=== PATIENT | male | born 1980 | race Caucasian/White ===

== ENCOUNTER 2016-11-29 09:47 | Day surgery (SDC) | payer OTHER ==
[2016-11-28 13:22] VITALS: BMI 25.6
[~2016-11-29 09:47] MED LIST: ACETAMINOPHEN 325 MG TABLET (FP) PO PRN; CIPROFLOXACIN HCL 0.3% OPHTH 2.5ML BOTTLE OP SCH; TRIAMCINOLONE ACET 40MG/1ML VIAL IM ONE
[2016-11-29 10:19] VITALS: TEMP 97.6
[2016-11-29] MEDS ORDERED: CIPROFLOXACIN HCL 0.3% OPHTH 2.5ML BOTTLE OD ONE ×3 (10:25→10:38)
[2016-11-29] MEDS ORDERED: TRIAMCINOLONE ACET 40MG/1ML VIAL ONE (11:25)
[2016-11-29] MEDS ORDERED: LIDOCAINE 1%/EPI 1:100000 (50 ML MULTI DOSE VIAL) ONE (11:25)
[2016-11-29] MEDS ORDERED: LIDOCAINE HCL 2% JELLY (5 ML/TUBE) TP ONE (11:35)
[2016-11-29] MEDS ORDERED: POVIDONE-IODINE 5% OPHTHALMIC PREP 30 ML SOLUTION OD ONE (11:50)
[2016-11-29] MEDS ORDERED: MIDAZOLAM HCL 2 MG/2 ML SINGLE DOSE VIAL ONE (11:56)
[2016-11-29] MEDS ORDERED: LIDOCAINE 1%/EPI 1:100000 (20 ML MULTI DOSE VIAL) IJ ONE ×2 (11:58)
[2016-11-29] MEDS ORDERED: BSS (NA/CA/MG/K) BALANCED SALT SOLUTION OPHTH SOLN 15 ML BOTTLE OD ONE (11:58)
[2016-11-29] MEDS ORDERED: TRIAMCINOLONE ACET 40MG/1ML VIAL IM ONE (12:38)
[2016-11-29] MEDS ORDERED: ACETAMINOPHEN 325 MG TABLET (FP) ONE (12:55)
[2016-11-29 14:07] VITALS: BP 118/56; PULSE 62
--- NOTE | 2016-11-29 21:51 | OP ---
DATE OF OPERATION: 11/29/2016 PREOPERATIVE DIAGNOSIS: Recurrent pterygium, right eye. POSTOPERATIVE DIAGNOSIS: Recurrent pterygium, right eye. PROCEDURE: PROCEDURE: Excision of recurrent pterygium with conjunctival autograft, right eye. ANESTHESIA: Topical MAC. COMPLICATIONS: None. PROCEDURE: The patient was brought to the operating room and correctly identified along with the operative site. He was then prepped and draped in the usual sterile fashion including 5% Betadine solution in the conjunctival sac and an eyelid drape. An eyelid speculum was then placed into the right eye. The borders of the pterygium were marked and 2 relaxing incisions were made in the conjunctivae superiorly and inferiorly to the pterygium. Dissection to bare sclera was taken place beneath the pterygium. There was a significant amount of scleral and corneal scarring noted but the pterygium was freed from the corneal surface and limbus with blunt dissection using Jonathon scissors as well as Weck spear sponges and the Jonathon scissors. The subconjunctival space was then dissected bluntly using cotton-tip applicators as well as Weck johnson. Minimal use of Westcotts were used to free the space as well. The subconjunctival tissue was as well dissected and excised for approximately 1 to 2 mm posterior in the conjunctival defect. The specimen was sent for histopathologic evaluation. The conjunctival defect was then measured, and measured vertically 8 mm at the limbus by 10 mm posteriorly by 6 mm horizontally. Attention was then placed to superotemporal conjunctivae, and appropriate size conjunctival graft was then created. This graft was then brought into place in the nasal conjunctival defect and sutured into place with a total of seven 10-0 nylon interrupted sutures. At the end of the surgery, the graft was noted to be well positioned and secure. The corneal defect was then polished with a 57 blade, subconjunctival Kenalog given, and the eye patched, and the patient discharged from the operating room in a stable condition. LAYLA JONES M.D. [id number]
--- NOTE | 2016-11-30 11:13 | PATH ---
Surgical Pathology Report Patient Name: CAPRI REYES [facility]. Rec. #: [id number] /Age/Gender: 1980 (Age: 35) / M Account: [id number] Location: [facility] Taken: 11/29/2016 Received: 11/29/2016 Reported: 11/30/2016 Physicians: Jerry Huynh M.D. Specimen(s) Received PTERYGIUM RIGHT EYE Clinical History Recurrent pterygium right eye Final Diagnosis CONJUNCTIVA, RIGHT EYE, EXCISION: PTERYGIUM. Electronically Signed Matias Gordon M.D. Gross Description Received in formalin, labeled "pterygium right eye" is a tucker, irregular portion of soft tissue measuring 0.4 cm. in greatest dimension. The specimen is submitted in toto in one cassette. /11/29/201611/29/2016
== END 2016-11-29 13:50 | disposition home or self-care (01) ==
LOC: JASU-SURG 09:47
PROVIDERS: ATTEND Ophthalmology
PROC: 08U007Z Supplement of Right Eye with Autologous Tissue Substitute, Open Approach (ICD-10-PCS; principal; 2016-11-29 12:00)
DX: H11.061 Recurrent pterygium of right eye (principal)
CPT/HCPCS: 88304-TC